=== PATIENT | male | born 1960 | race Caucasian/White ===

== ENCOUNTER 2019-10-02 19:06 | Emergency (ER) | payer SELFPAY ==
[~2019-10-02] VITALS: Ht 175.3 cm; Wt 68.0 kg
[2019-10-02 19:14] VITALS: BP 170/104
[2019-10-02] MEDS ORDERED: TETANUS-DIPTH-ACEL PERTUSSIS 0.5ML SYRG IM ONE (19:30)
== END 2019-10-02 19:57 | disposition home or self-care (01) ==
LOC: EDBD 19:06 → ER 19:09
DX: S00.01XA Abrasion of scalp, initial encounter (principal); F12.10 Cannabis abuse, uncomplicated; F15.10 Other stimulant abuse, uncomplicated; W22.8XXA Striking against or struck by other objects, initial encounter; Y93.89 Activity, other specified; Y99.8 Other external cause status; Y92.89 Other specified places as the place of occurrence of the external cause
CPT/HCPCS: 90471; 90715